=== PATIENT | male | born 1945 | race Caucasian/White ===

== ENCOUNTER 2016-10-23 14:35 | Inpatient (IN) | payer MEDICARE, BC ==
[~2016-10-23] VITALS: Ht 185.4 cm; Wt 141.5 kg
[~2016-10-23 14:35] MED LIST: AMLODIPINE5 MG PO; AMOXICILLIN/CL875 MG OR; AMOXICILLIN/CL875 MG PO; AMOXICILLIN500 MG PO; ASPIRIN 81 LOW81 MG PO; AUGMENTIN875TAB PO; BENZONATATE200 MG PO; BL ADULT ASA81 MG OR; CHERATUSSIN OR; CLARITHROMYCIN500 MG OR; FISH OIL1000 MG PO; FLONASE NASAL50 MCG; HYDROCHLOROT25 MG PO; KEFLEX500 MG PO; LEVAQUIN750 MG PO; LOSARTAN POTASS50 MG PO; METOPROL TAR25 MG PO; MUCINEX600 MG PO; MULTIVITAMIN OR; PRAVASTATIN10 MG PO; PREDNISONE10 MG PO; PREDNISONE20 MG PO; PROAIR HFA IN; ROCEPHIN 1 GM1 GM IM; TAMSULOSIN HCL0.4 MG PO; ZIAC 2.52.5 MG OR; ZOSTAVAX IM; ZPAK PO; ZYRTEC10 MG PO
[2016-10-26] VITALS (9 sets, daily range): BP systolic 112–150; BP diastolic 50–88
[2016-10-26 07:38] LABS: HEMATOCRIT 41.3 % (39.0-50.0); HEMOGLOBIN 13.8 g/dl (14.0-18.0); IMMATURE GRANULOCYTES 0.4 % (0.0-1.0); MEAN CELL VOLUME 90.8 fL CALC (80.0-100.0); MEAN CORPUSCULAR HGB 30.3 pG CALC (26.0-32.0); MEAN CORPUSCULAR HGB CONC 33.4 g/L CALC (32.0-36.0); NEUT# 4.55 thou/uL (1.82-7.42); RED BLOOD COUNT 4.55 mill/uL (4.70-6.10); RED CELL DISTRI WIDTH 12.6 % (11.5-15.5)
[2016-10-27 03:40] VITALS: BP 141/80
[2016-10-27 07:17] LABS: HEMATOCRIT 34.7 % (39.0-50.0); HEMOGLOBIN 11.2 g/dl (14.0-18.0); IMMATURE GRANULOCYTES 0.5 % (0.0-1.0); MEAN CELL VOLUME 92.5 fL CALC (80.0-100.0); MEAN CORPUSCULAR HGB 29.9 pG CALC (26.0-32.0); MEAN CORPUSCULAR HGB CONC 32.3 g/L CALC (32.0-36.0); NEUT# 9.26 thou/uL (1.82-7.42); RED BLOOD COUNT 3.75 mill/uL (4.70-6.10); RED CELL DISTRI WIDTH 12.9 % (11.5-15.5)
[2016-10-27 07:44] LABS: ANION GAP 15 (6-22 (CALC)); BUN 14 mg/dL (8-23); BUN/CREATININE RATIO 17 (12-20 (CALC)); CALCIUM 8.5 mg/dL (8.4-10.2); CARBON DIOXIDE 28 mmol/l (22-30); CHLORIDE 100 mmol/l (95-108); CREATININE 0.8 mg/dL (0.7-1.3); GFR > 60 ML/MIN (>=60 (CALC)); GFR FOR AFR.AMER. > 60 ML/MIN (>=60 (CALC)); GLUCOSE 114 mg/dL (82-115); POTASSIUM 4.2 mmol/l (3.5-5.1); SODIUM 139 mmol/l (137-146)
[2016-10-27 12:10] VITALS: BP 158/85
[2016-10-27 16:26] VITALS: BP 130/68
[2016-10-27 20:38] VITALS: BP 140/74
[2016-10-27 23:38] VITALS: BP 123/70
[2016-10-28 04:28] VITALS: BP 144/75
[2016-10-28 05:55] LABS: HEMATOCRIT 28.8 % (39.0-50.0); HEMOGLOBIN 9.7 g/dl (14.0-18.0)
[2016-10-28 08:31] VITALS: BP 113/69
[2016-10-28 16:15] VITALS: BP 146/78
[2016-10-28 20:28] VITALS: BP 128/64
[2016-10-29] VITALS: BP 110/68
[2016-10-29 04:56] VITALS: BP 142/75
[2016-10-29 05:42] LABS: HEMATOCRIT 26.9 % (39.0-50.0); HEMOGLOBIN 9.1 g/dl (14.0-18.0)
[2016-10-29 08:34] VITALS: BP 141/52
[2016-10-29 08:48] LABS: ANION GAP 10 (6-22 (CALC)); BUN 15 mg/dL (8-23); BUN/CREATININE RATIO 17 (12-20 (CALC)); CALCIUM 7.9 mg/dL (8.4-10.2); CARBON DIOXIDE 29 mmol/l (22-30); CHLORIDE 100 mmol/l (95-108); CREATININE 0.9 mg/dL (0.7-1.3); GFR > 60 ML/MIN (>=60 (CALC)); GFR FOR AFR.AMER. > 60 ML/MIN (>=60 (CALC)); GLUCOSE 105 mg/dL (82-115); POTASSIUM 3.2 mmol/l (3.5-5.1); SODIUM 135 mmol/l (137-146)
[2016-10-29] MEDS ORDERED: GLYCOLAX3350 N1 PO (11:01)
[2016-10-29] MEDS ORDERED: XARELTO10 MG PO (11:01)
[2016-10-29] MEDS ORDERED: PERCOCET 10/31 COMBO PO (11:01)
[2016-10-29 14:04] LABS: URINE BILIRUBIN - DIPSTICK NEGATIVE (NEGATIVE); URINE BLOOD DIPSTICK TRACE-INTACT (NEGATIVE); URINE CLARITY CLEAR; URINE COLOR YELLOW; URINE GLUCOSE - DIPSTICK NEGATIVE (NEGATIVE); URINE KETONE NEGATIVE (NEGATIVE); URINE LEUK ESTERASE NEGATIVE (NEGATIVE); URINE NITRITE - DIPSTICK NEGATIVE (Negative); URINE PROTEIN - DIPSTICK NEGATIVE (NEG-TRACE); URINE SPECIFIC GRAVITY 1.015; URINE UROBILINOGEN - DIPSTICK 0.2 E.U./dL (0.2)
[2016-10-29 15:49] VITALS: BP 133/76
== END 2016-10-29 16:46 | DRG 470 ==
LOC: ENPENDDIS → MS2 10-26 05:49
PROVIDERS: Internal Medicine; Nurse Practitioner Family; ADMIT Orthopaedic Surgery; ATTEND Orthopaedic Surgery
PROC: 0SRD0J9 Replacement of Left Knee Joint with Synthetic Substitute, Cemented, Open Approach (ICD-10-PCS; principal; 2016-10-26)
DX: M17.11 Unilateral primary osteoarthritis, right knee (principal); D62 Acute posthemorrhagic anemia; I10 Essential (primary) hypertension; Z68.41 Body mass index [BMI] 40.0-44.9, adult; E78.5 Hyperlipidemia, unspecified; E66.01 Morbid (severe) obesity due to excess calories; N40.1 Benign prostatic hyperplasia with lower urinary tract symptoms; R33.8 Other retention of urine; Z87.891 Personal history of nicotine dependence
CPT/HCPCS: J2270

== ENCOUNTER 2017-09-11 05:40 | Day surgery (SDC) | payer MEDICARE, BC ==
[~2017-09-11] VITALS: Ht 185.4 cm; Wt 141.5 kg
[~2017-09-11 05:40] MED LIST changes: +GLYCOLAX3350 N1 PO; +LEVOTHYROXIN25 MC1 PO; +MULTIVITAMIN ME1 TA1 PO; +PERCOCET 10/31 COMBO PO; +XARELTO10 MG PO
[2017-09-11 07:52] VITALS: BP 125/59
== END 2017-09-11 08:08 | disposition home or self-care (01) ==
LOC: ENDO 05:40
PROVIDERS: ATTEND Surgery
PROC: 0DJD8ZZ Inspection of Lower Intestinal Tract, Via Natural or Artificial Opening Endoscopic (ICD-10-PCS; principal; 2017-09-11)
DX: Z12.11 Encounter for screening for malignant neoplasm of colon (principal); Q43.8 Other specified congenital malformations of intestine; I10 Essential (primary) hypertension; E78.5 Hyperlipidemia, unspecified; N40.0 Benign prostatic hyperplasia without lower urinary tract symptoms
CPT/HCPCS: G0121

== ENCOUNTER 2018-10-01 05:51 | Day surgery (SDC) | payer MEDICARE, BC ==
[~2018-10-01] VITALS: Ht 185.4 cm; Wt 141.1 kg
[~2018-10-01 05:51] MED LIST changes: +TIZANIDINE HCL2 MG PO
[2018-10-01 10:59] VITALS: BP 154/96
== END 2018-10-01 08:18 | disposition home or self-care (01) ==
LOC: ORM 05:51
PROVIDERS: ATTEND Anesthesiology Pain Medicine
PROC: 3E0U33Z Introduction of Anti-inflammatory into Joints, Percutaneous Approach (ICD-10-PCS; principal; 2018-10-01)
PROC: 3E0U3BZ Introduction of Anesthetic Agent into Joints, Percutaneous Approach (ICD-10-PCS; 2018-10-01)
DX: D46.1 Refractory anemia with ring sideroblasts (principal)

== ENCOUNTER 2018-10-15 07:31 | Day surgery (SDC) | payer MEDICARE, BC ==
[~2018-10-15] VITALS: Ht 185.4 cm; Wt 141.1 kg
[2018-10-15 10:24] VITALS: BP 155/74
== END 2018-10-15 10:17 | disposition home or self-care (01) ==
LOC: ORM 07:31
PROVIDERS: ATTEND Anesthesiology Pain Medicine
PROC: 3E0U33Z Introduction of Anti-inflammatory into Joints, Percutaneous Approach (ICD-10-PCS; principal; 2018-10-15)
PROC: 3E0U3BZ Introduction of Anesthetic Agent into Joints, Percutaneous Approach (ICD-10-PCS; 2018-10-15)
DX: M46.1 Sacroiliitis, not elsewhere classified (principal)

== ENCOUNTER 2018-12-24 05:41 | Day surgery (SDC) | payer MEDICARE, BC ==
[~2018-12-24] VITALS: Ht 185.4 cm; Wt 139.7 kg
[2018-12-24 07:38] VITALS: BP 168/97
== END 2018-12-24 08:01 | disposition home or self-care (01) ==
LOC: ORM 05:41
PROVIDERS: ATTEND Anesthesiology Pain Medicine
PROC: 3E0T3BZ Introduction of Anesthetic Agent into Peripheral Nerves and Plexi, Percutaneous Approach (ICD-10-PCS; principal; 2018-12-24)
PROC: 3E0T33Z Introduction of Anti-inflammatory into Peripheral Nerves and Plexi, Percutaneous Approach (ICD-10-PCS; 2018-12-24)
PROC: BR161ZZ Fluoroscopy of Lumbar Facet Joint(s) using Low Osmolar Contrast (ICD-10-PCS; 2018-12-24)
PROC: 3E0T3BZ Introduction of Anesthetic Agent into Peripheral Nerves and Plexi, Percutaneous Approach (ICD-10-PCS; 2018-12-24)
PROC: 3E0T33Z Introduction of Anti-inflammatory into Peripheral Nerves and Plexi, Percutaneous Approach (ICD-10-PCS; 2018-12-24)
PROC: 3E0T3BZ Introduction of Anesthetic Agent into Peripheral Nerves and Plexi, Percutaneous Approach (ICD-10-PCS; 2018-12-24)
PROC: 3E0T33Z Introduction of Anti-inflammatory into Peripheral Nerves and Plexi, Percutaneous Approach (ICD-10-PCS; 2018-12-24)
PROC: 3E0T3BZ Introduction of Anesthetic Agent into Peripheral Nerves and Plexi, Percutaneous Approach (ICD-10-PCS; 2018-12-24)
PROC: 3E0T33Z Introduction of Anti-inflammatory into Peripheral Nerves and Plexi, Percutaneous Approach (ICD-10-PCS; 2018-12-24)
DX: M54.5 Low back pain (principal); M12.9 Arthropathy, unspecified; M46.1 Sacroiliitis, not elsewhere classified

== ENCOUNTER 2019-01-07 06:40 | Day surgery (SDC) | payer MEDICARE, BC ==
[~2019-01-07] VITALS: Ht 185.4 cm; Wt 139.7 kg
[2019-01-07 10:40] VITALS: BP 164/93
== END 2019-01-07 09:11 | disposition home or self-care (01) ==
LOC: ORM 06:40
PROVIDERS: ATTEND Anesthesiology Pain Medicine
DX: M54.5 Low back pain (principal); M12.9 Arthropathy, unspecified; M46.1 Sacroiliitis, not elsewhere classified

== ENCOUNTER 2019-03-18 | Day surgery (SDC) | payer MEDICARE, BC | END 2019-03-18 09:25 | disposition home or self-care (01) | DX: M54.5 Low back pain (principal); M12.9 Arthropathy, unspecified ==

== ENCOUNTER 2021-04-18 15:15 | Emergency (ER) | payer MEDICARE, BC ==
[~2021-04-18] VITALS: Ht 185.4 cm; Wt 154.0 kg
[2021-04-18 16:40] LABS: IMMATURE GRANULOCYTES 0.3 % (0.0-5.0); MEAN CELL VOLUME 91.8 fL CALC (80.0-100.0); MEAN CORPUSCULAR HGB 30.5 pG CALC (26.0-32.0); MEAN CORPUSCULAR HGB CONC 33.2 g/dL CAL (32.0-36.0); NEUT# 7.68 thou/uL (1.82-7.42); RED BLOOD COUNT 4.26 mill/uL (4.70-6.10); RED CELL DISTRI WIDTH 12.7 % (11.5-15.5)
[2021-04-18 16:44] LABS: HEMATOCRIT 39.1 % (39.0-50.0)
[2021-04-18 17:01] LABS: ALKALINE PHOSPHATASE 73 u/l (38-126); ANION GAP 15 (6-22 (CALC)); BILIRUBIN, TOTAL 0.6 mg/dL (0.0-1.4); BUN 31 mg/dL (8-23); BUN/CREATININE RATIO 19 (12-20 (CALC)); CARBON DIOXIDE 27 mmol/l (22-30); CHLORIDE 96 mmol/l (95-108); CREATININE 1.6 mg/dL (0.7-1.3); GFR 42 ML/MIN (>=60 (CALC)); GFR FOR AFR.AMER. 51 ML/MIN (>=60 (CALC)); POTASSIUM 3.5 mmol/l (3.5-5.1); SGOT/AST 69 u/l (19-48); SODIUM 134 mmol/l (137-146); TOTAL PROTEIN 7.5 g/dL (6.3-8.2)
[2021-04-18 19:04] VITALS: BP 124/55
== END 2021-04-18 19:05 | disposition home or self-care (01) ==
LOC: ED 15:15
PROVIDERS: Family Medicine
DX: U07.1 COVID-19 (principal); I10 Essential (primary) hypertension; E11.9 Type 2 diabetes mellitus without complications; E78.00 Pure hypercholesterolemia, unspecified; N40.0 Benign prostatic hyperplasia without lower urinary tract symptoms

== ENCOUNTER 2024-03-06 07:54 | Emergency (ER) | payer MEDICARE, BC ==
[~2024-03-06] VITALS: Ht 185.4 cm; Wt 143.7 kg
[~2024-03-06 07:54] MED LIST changes: +CHLORTHALIDONE25 MG PO; +DOXYCYCLINE100 MG PO; +LEVOTHYROXIN75 MC1 PO; +METOPROLOL100 M1 PO; +PAXLOVID 10 X 11 TAB PO
[2024-03-06] MEDS ORDERED: predniSONE 20 MG/TAB PO ONE (08:25)
[2024-03-06] MEDS ORDERED: IPRATROPIUM-Albuterol 0.5MG-2.5MG/3 ML NEB ONE ×2 (08:25)
[2024-03-06] MEDS ORDERED: ZPAK PO (09:06)
[2024-03-06] MEDS ORDERED: IPRATROPIU0.5 MG/3 M IN (09:06)
[2024-03-06] MEDS ORDERED: PREDNISONE50 MG PO (09:06)
[2024-03-06] MEDS ORDERED: VENTOLIN HFA108 MCG PO (09:06)
[2024-03-06] MEDS ORDERED: NEBULIZER PO (09:06)
[2024-03-06 09:11] VITALS: BP 119/71
== END 2024-03-06 09:14 | disposition home or self-care (01) ==
LOC: ED 07:54
DX: J06.9 Acute upper respiratory infection, unspecified (principal); E03.9 Hypothyroidism, unspecified; E78.5 Hyperlipidemia, unspecified; I10 Essential (primary) hypertension; N40.0 Benign prostatic hyperplasia without lower urinary tract symptoms; Z20.822 Contact with and (suspected) exposure to COVID-19